=== PATIENT | female | born 1995 | race African-American/Black ===

== ENCOUNTER 2016-12-16 22:12 | Emergency (ER) | payer OTHER ==
[2016-12-16] MEDS ORDERED: Ibuprofen 800 MG TAB ONE (22:35)
[2016-12-16] MEDS ORDERED: predniSONE 20 MG TAB ONE (22:36)
== END 2016-12-16 22:50 | disposition home or self-care (01) ==
LOC: MADERS 22:12
DX: R07.81 Pleurodynia (principal)
CPT/HCPCS: 93005; J7506

== ENCOUNTER 2017-04-05 22:06 | Emergency (ER) | payer OTHER ==
[2017-04-05 22:45] LABS: Bilirubin Negative (Negative); Blood, Urine Negative (Negative); Clarity Cloudy (Clear); Glucose, Urine (Dipstick) Negative (Negative); Leukocyte Moderate (Negative); Nitrite Negative (Negative); Pregnancy Test - Urine (BHCG) NEGATIVE (NEGATIVE); Pregu Control Background? CLEAR/WHITE (CLR/WHITE); Pregu Control Bar Appear? YES (CONTROL BAR); Protein, Urine (Dipstick) Negative (Neg-Trace); Urobilinogen 0.2 mg/dL (0.2-1.0); pH, Urine 7.5 (5.0-9.0)
[2017-04-05 22:51] LABS: RBC/HPF None Seen HPF (0-3); WBC/HPF 21-50 HPF (0-3)
[2017-04-05 22:52] LABS: Bacteria/HPF Rare-Few HPF (None Seen)
[2017-04-05] MEDS ORDERED: Sulfameth/Trimethoprim DS 800-160mg TAB ONE (23:17)
[2017-04-05] MEDS ORDERED: traMADol HCl 50 MG TAB ONE (23:17)
== END 2017-04-05 23:23 | disposition home or self-care (01) ==
LOC: MADERS 22:06
DX: N39.0 Urinary tract infection, site not specified (principal)
CPT/HCPCS: 81001; 81025; 87086; 99284

== ENCOUNTER 2017-05-19 22:38 | Emergency (ER) | payer OTHER ==
[2017-05-19 22:58] LABS: Bilirubin Negative (Negative); Clarity Cloudy (Clear); Glucose, Urine (Dipstick) Negative (Negative); Leukocyte Trace (Negative); Nitrite Negative (Negative); Protein, Urine (Dipstick) 30 mg/dL (Neg-Trace); Specific Gravity, Urine 1.025 (1.005-1.030); Urobilinogen 0.2 mg/dL (0.2-1.0); pH, Urine 6.5 (5.0-9.0)
[2017-05-19 22:59] LABS: Blood, Urine Negative (Negative)
[2017-05-19 23:01] LABS: Pregnancy Test - Urine (BHCG) Negative (Negative); Pregu Control Background? CLEAR/WHITE (CLR/WHITE); Pregu Control Bar Appear? YES (CONTROL BAR); Specific Gravity 1.025 (1.002-1.036)
[2017-05-19 23:06] LABS: Bacteria/HPF Rare-Few HPF (None Seen); RBC/HPF 0-3 HPF (0-3); Squamous Epithelial 21-50 HPF (0-3)
[2017-05-19] MEDS ORDERED: Nitrofurantoin Monohyd/M-Cryst 100 MG CAP ONE (23:23)
[2017-05-19] MEDS ORDERED: Phenazopyridine HCl 97.5 MG TABLET ONE (23:23)
== END 2017-05-19 23:28 | disposition home or self-care (01) ==
LOC: MADERS 22:38
DX: N39.0 Urinary tract infection, site not specified (principal)
CPT/HCPCS: 81001; 81025; 87086; 99283

== ENCOUNTER 2017-05-24 15:25 | Emergency (ER) | payer OTHER | END 2017-05-24 16:30 | disposition home or self-care (01) | LOC: MADERS 15:25 | DX: J02.9 Acute pharyngitis, unspecified (principal); Z79.2 Long term (current) use of antibiotics | CPT/HCPCS: 87081; 87430; 99283 ==

== ENCOUNTER 2017-06-18 12:41 | Emergency (ER) | payer SELFPAY ==
--- NOTE | 2017-06-18 13:57 | RAD ---
RIGHT HAND: Three views obtained. HISTORY: Fall with injury to right hand. FINDINGS: Carpals appear intact. Interosseous cyst seen involving the capitate. Metacarpals and phalanges ap pear intact. IMPRESSION: No evidence of acute fracture. POS: [facility]
== END 2017-06-18 13:42 | disposition home or self-care (01) ==
LOC: MADERS 12:41
DX: S60.221A Contusion of right hand, initial encounter (principal); W19.XXXA Unspecified fall, initial encounter

== ENCOUNTER 2017-09-14 16:42 | Emergency (ER) | payer MEDICAID, OTHER ==
[2017-09-14 17:48] LABS: Bilirubin Negative (Negative); Blood, Urine Trace (Negative); Clarity Cloudy (Clear); Glucose, Urine (Dipstick) Negative (Negative); Leukocyte Small (Negative); Nitrite Negative (Negative); Protein, Urine (Dipstick) 30 mg/dL (Neg-Trace); Specific Gravity, Urine 1.026 (1.002-1.036); Urobilinogen 0.2 mg/dL (0.2-1.0)
[2017-09-14 17:49] LABS: Pregnancy Test - Urine (BHCG) POSITIVE (Negative); Pregu Control Background? CLEAR/WHITE (CLR/WHITE); Pregu Control Bar Appear? YES (CONTROL BAR); Specific Gravity 1.026 (1.002-1.036)
[2017-09-14 17:51] LABS: RBC/HPF 0-3 HPF (0-3)
[2017-09-14 17:52] LABS: Bacteria/HPF 1+ HPF (None Seen); Crystals/HPF 1+ AMORPH URATES HPF (Negative); Squamous Epithelial 21-50 HPF (0-3)
== END 2017-09-14 18:20 | disposition home or self-care (01) ==
LOC: MADERS 16:42
DX: O23.11 Infections of bladder in pregnancy, first trimester (principal)
CPT/HCPCS: 81003; 81015; 81025; 99284

== ENCOUNTER 2017-09-24 10:31 | Emergency (ER) | payer MEDICAID ==
[~2017-09-24 10:31] MED LIST: metroNIDAZOLE 250 MG TAB ONE
[2017-09-24 11:12] LABS: Bilirubin Negative (Negative); Blood, Urine Moderate (Negative); Glucose, Urine (Dipstick) Negative (Negative); Leukocyte Small (Negative); Nitrite Negative (Negative); Protein, Urine (Dipstick) Negative (Neg-Trace); Specific Gravity, Urine 1.025 (1.005-1.030); pH, Urine 6.5 (5.0-9.0)
[2017-09-24 11:13] LABS: Clarity Hazy (Clear)
[2017-09-24 11:14] LABS: Bacteria/HPF 2+ HPF (None Seen); WBC/HPF 21-50 HPF (0-3)
[2017-09-24 11:15] LABS: Pregnancy Test - Urine (BHCG) POSITIVE (Negative); Pregu Control Background? CLEAR/WHITE (CLR/WHITE); Pregu Control Bar Appear? YES (CONTROL BAR); Specific Gravity 1.025 (1.002-1.036)
[2017-09-24 11:35] LABS: Wet Prep Clue Cells Clue Cells Absent (None Seen); Wet Prep Trichomonas Trichomonas PRESENT (None Seen)
[2017-09-24 11:36] LABS: Wet Prep Pathologist Review Spermatozoa Absent (None Seen); Wet Prep Spermatozoa 2nd Revie Agree with result (None Seen)
[2017-09-24 11:40] LABS: #Eosinphils 0.1 thou/uL (0.0-0.7); #Lymphocytes 1.6 thou/uL (1.20-3.40); #Monocytes 0.4 thou/uL (0.11-0.59); #Neutrophils 4.9 thou/uL (1.40-6.50); %Basophils 0.7 % (0.0-1.0); %Eosinophils 1.9 % (0.0-10.0); %Lymphocytes 22.7 % (21.0-51.0); %Monocytes 6.1 % (0.0-10.0); %Neutrophils 68.6 % (42.0-75.0); Hemoglobin 11.9 g/dL (12.0-16.0); Mean Corpuscular HGB CONC 35.1 g/dL (32.0-36.0); Mean Corpuscular Hemoglobin 30.9 pg (27.0-31.0); Mean Corpuscular Volume 88.1 fl (81.0-99.0); Platelet Count 249 thou/uL (130-400); RBC Distribution Width 11.7 % (11.5-14.5); Red Blood Cell (RBC) Count 3.86 mill/uL (4.20-5.40); White Blood Cell (WBC) Count 7.2 thou/uL (4.8-10.8)
[2017-09-24] MEDS ORDERED: metroNIDAZOLE 250 MG TAB ONE (12:57)
[2017-10-01 10:01] LABS: Chlamydia by PCR Not Detected (NotDetected); GC by PCR Not Detected (NotDetected)
== END 2017-09-24 13:14 | disposition short-term general hospital (02) ==
LOC: MADERS 10:31
DX: O20.9 Hemorrhage in early pregnancy, unspecified (principal); Z3A.01 Less than 8 weeks gestation of pregnancy
CPT/HCPCS: 36415; 81003; 81015; 81025; 84702; 85025; 87086; 87210; 87491; 87591; 99284

== ENCOUNTER 2017-10-21 10:19 | Emergency (ER) | payer MEDICAID, OTHER ==
[2017-10-21 11:16] LABS: Bilirubin Negative (Negative); Blood, Urine Negative (Negative); Clarity Slightly Cloudy (Clear); Glucose, Urine (Dipstick) Negative (Negative); Leukocyte Moderate (Negative); Nitrite Negative (Negative); Pregnancy Test - Urine (BHCG) POSITIVE (Negative); Protein, Urine (Dipstick) 30 mg/dL (Neg-Trace); pH, Urine 6.5 (5.0-9.0)
[2017-10-21 11:17] LABS: Pregu Control Background? CLEAR/WHITE (CLR/WHITE); Pregu Control Bar Appear? YES (CONTROL BAR)
[2017-10-21 11:21] LABS: Bacteria/HPF 3+ HPF (None Seen); WBC/HPF 21-50 HPF (0-3)
== END 2017-10-21 11:46 | disposition home or self-care (01) ==
LOC: MADERS 10:19
DX: O99.89 Other specified diseases and conditions complicating pregnancy, childbirth and the puerperium (principal); R82.71 Bacteriuria; R10.31 Right lower quadrant pain; Z3A.10 10 weeks gestation of pregnancy
CPT/HCPCS: 81003; 81015; 81025; 87077; 87086; 99284

== ENCOUNTER 2018-03-05 19:25 | Emergency (ER) | payer OTHER ==
[~2018-03-05 19:25] MED LIST changes: +Sodium Chloride 0.9% 1,000 ML BAG ONE; -metroNIDAZOLE 250 MG TAB ONE
[2018-03-05 19:59] LABS: Bilirubin Negative (Negative); Blood, Urine Negative (Negative); Clarity Cloudy (Clear); Glucose, Urine (Dipstick) Negative (Negative); Leukocyte Trace (Negative); Nitrite Negative (Negative); Protein, Urine (Dipstick) 30 mg/dL (Neg-Trace); Specific Gravity, Urine 1.015 (1.005-1.030); Urobilinogen 0.2 mg/dL (0.2-1.0)
[2018-03-05] MEDS ORDERED: cefTRIAXone\\ROCEPHIN 1 GM VIAL ONE (20:08)
[2018-03-05] MEDS ORDERED: Ondansetron ODT 4 MG TAB ONE (20:08)
[2018-03-05 20:16] LABS: Bacteria/HPF 2+ HPF (None Seen); RBC/HPF None Seen HPF (0-3); WBC/HPF 0-3 HPF (0-3)
[2018-03-05 20:20] LABS: #Basophils 0.1 thou/uL (0.0-0.2); #Eosinphils 0.2 thou/uL (0.0-0.7); #Lymphocytes 1.8 thou/uL (1.20-3.40); #Monocytes 0.6 thou/uL (0.11-0.59); #Neutrophils 8.5 thou/uL (1.40-6.50); %Basophils 0.6 % (0.0-1.0); %Eosinophils 1.4 % (0.0-10.0); %Lymphocytes 16.2 % (21.0-51.0); %Monocytes 5.6 % (0.0-10.0); %Neutrophils 76.2 % (42.0-75.0); Hemoglobin 10.5 g/dL (12.0-16.0); Mean Corpuscular HGB CONC 34.1 g/dL (32.0-36.0); Mean Corpuscular Hemoglobin 29.8 pg (27.0-31.0); Mean Corpuscular Volume 87.2 fl (81.0-99.0); Mean Platelet Volume 6.8 fL (7.4-10.4); Platelet Count 212 thou/uL (130-400); RBC Distribution Width 11.1 % (11.5-14.5); Red Blood Cell (RBC) Count 3.53 mill/uL (4.20-5.40); White Blood Cell (WBC) Count 11.2 thou/uL (4.8-10.8)
[2018-03-05 20:44] LABS: ALT (SGPT) Less than 7 U/L (8-55); AST (SGOT) 10 U/L (5-34); Albumin 3.4 g/dL (3.5-5.0); Alkaline Phosphatase 70 U/L (40-150); Anion Gap 14 mmol/L (10-20); BUN (Urea Nitrogen) 4 mg/dL (7.0-18.7); Bilirubin, Total 0.7 mg/dL (0.2-1.2); Calc. Creatinine Clearance 0 mL/min (70-130); Calcium 8.9 mg/dL (7.8-10.44); Carbon Dioxide 21 mmol/L (22-29); Chloride 104 mmol/L (98-107); Estimated GFR-MDRD Greater than 90; Globulin 3.3 g/dL (2.4-3.5); Glucose 80 mg/dL (70-105); Potassium 3.6 mmol/L (3.5-5.1); Protein, Total 6.7 g/dL (6.0-8.3); Sodium 135 mmol/L (136-145)
== END 2018-03-05 21:05 | disposition home or self-care (01) ==
LOC: MADERS 19:25
DX: O23.43 Unspecified infection of urinary tract in pregnancy, third trimester (principal); O21.2 Late vomiting of pregnancy; O99.343 Other mental disorders complicating pregnancy, third trimester; F32.9 Major depressive disorder, single episode, unspecified; O99.283 Endocrine, nutritional and metabolic diseases complicating pregnancy, third trimester; E86.0 Dehydration; Z79.899 Other long term (current) drug therapy; Z3A.29 29 weeks gestation of pregnancy
CPT/HCPCS: 80053; 81003; 81015; 85025; 87086; 96361; 96374; J0696; J7050; Q0162

== ENCOUNTER 2018-04-26 12:44 | Emergency (ER) | payer OTHER ==
[2018-04-26] MEDS ORDERED: Ondansetron ODT 4 MG TAB ONE (13:45)
== END 2018-04-26 15:02 | disposition short-term general hospital (02) ==
LOC: MADERS 12:44
DX: O99.89 Other specified diseases and conditions complicating pregnancy, childbirth and the puerperium (principal); R10.9 Unspecified abdominal pain; O99.343 Other mental disorders complicating pregnancy, third trimester; F31.9 Bipolar disorder, unspecified; Z3A.37 37 weeks gestation of pregnancy
CPT/HCPCS: 99284; Q0162

== ENCOUNTER 2018-05-01 23:22 | Emergency (ER) | payer OTHER | END 2018-05-02 02:55 | disposition left against medical advice (07) | LOC: MADERS 23:22 | DX: O80 Encounter for full-term uncomplicated delivery (principal); Z3A.38 38 weeks gestation of pregnancy | CPT/HCPCS: 99283 ==

== ENCOUNTER 2018-08-04 19:22 | Emergency (ER) | payer OTHER | END 2018-08-04 19:44 | disposition home or self-care (01) | LOC: MADERS 19:22 | DX: R05 Cough (principal); F31.9 Bipolar disorder, unspecified | CPT/HCPCS: 99281 ==

== ENCOUNTER 2018-11-07 19:42 | Emergency (ER) | payer OTHER ==
[2018-11-07] MEDS ORDERED: Ondansetron ODT 4 MG TAB ONE (19:58)
== END 2018-11-07 20:05 | disposition home or self-care (01) ==
LOC: MADERS 19:42
DX: K52.9 Noninfective gastroenteritis and colitis, unspecified (principal); F31.9 Bipolar disorder, unspecified
CPT/HCPCS: 99283; Q0162

== ENCOUNTER 2018-12-04 14:44 | Emergency (ER) | payer SELFPAY | END 2018-12-04 15:28 | disposition home or self-care (01) | LOC: MADERS 14:44 | DX: B34.9 Viral infection, unspecified (principal); F31.9 Bipolar disorder, unspecified | CPT/HCPCS: 99283 ==

== ENCOUNTER 2019-01-05 19:43 | Emergency (ER) | payer SELFPAY, OTHER ==
[2019-01-05] MEDS ORDERED: Ibuprofen 800 MG TAB ONE (20:23)
== END 2019-01-05 21:10 | disposition home or self-care (01) ==
LOC: MADERS 19:43
DX: J02.9 Acute pharyngitis, unspecified (principal); F31.9 Bipolar disorder, unspecified
CPT/HCPCS: 87081; 87430; 87804; 99283

== ENCOUNTER 2019-04-24 12:56 | Emergency (ER) | payer SELFPAY | END 2019-04-24 13:20 | disposition home or self-care (01) | LOC: MADERS 12:56 | DX: K14.6 Glossodynia (principal); F31.9 Bipolar disorder, unspecified | CPT/HCPCS: 99283 ==

== ENCOUNTER 2020-05-27 13:24 | Emergency (ER) | payer MEDICAID, OTHER, SELFPAY ==
[2020-05-27] MEDS ORDERED: Oxymetazoline HCl 0.05% (30 ML BOT) ONE (13:55)
== END 2020-05-27 14:01 | disposition home or self-care (01) ==
LOC: MADERS 13:24
DX: H92.01 Otalgia, right ear (principal); F31.9 Bipolar disorder, unspecified
CPT/HCPCS: 99282

== ENCOUNTER 2020-07-06 10:59 | Emergency (ER) | payer OTHER ==
[~2020-07-06 10:59] MED LIST changes: +Iopamidol 370 76% 100 ML VIAL ONE; +Ketorolac Tromethamine 30 MG/ML VIAL ONE; -Sodium Chloride 0.9% 1,000 ML BAG ONE
[2020-07-06 11:42] LABS: #Eosinphils 0.3 thou/uL (0.0-0.7); #Lymphocytes 1.8 thou/uL (1.20-3.40); #Monocytes 0.4 thou/uL (0.11-0.59); #Neutrophils 4.9 thou/uL (1.40-6.50); %Basophils 0.7 % (0.0-1.0); %Monocytes 4.8 % (0.0-10.0); %Neutrophils 66.5 % (42.0-75.0); Hemoglobin 11.8 g/dL (12.0-16.0); Mean Corpuscular HGB CONC 32.9 g/dL (32.0-36.0); Mean Corpuscular Hemoglobin 26.8 pg (27.0-31.0); Mean Corpuscular Volume 81.5 fL (78.0-98.0); Platelet Count 280 thou/uL (130-400); RBC Distribution Width 14.8 % (11.5-14.5); White Blood Cell (WBC) Count 7.4 thou/uL (4.8-10.8)
[2020-07-06 11:44] LABS: PTT 34.8 sec (22.9-36.1); Prothrombin Time 13.2 sec (12.0-14.7)
[2020-07-06 11:49] LABS: BHCG - Serum Negative (NEGATIVE); Pregs Control Background? CLEAR/WHITE (CLR/WHITE); Pregs Control Bar Appear? YES (CONTROL BAR)
[2020-07-06 11:53] LABS: Anion Gap 15 mmol/L (10-20); BUN (Urea Nitrogen) 7 mg/dL (7.0-18.7); Calc. Creatinine Clearance 0 mL/min (70-130); Calcium 8.6 mg/dL (7.8-10.44); Carbon Dioxide 22 mmol/L (22-29); Chloride 107 mmol/L (98-107); Estimated GFR-MDRD Greater than 90; Glucose 113 mg/dL (70-105); Potassium 3.5 mmol/L (3.5-5.1); Sodium 140 mmol/L (136-145)
[2020-07-06 12:01] LABS: Bilirubin Negative (Negative); Blood, Urine Small (Negative); Clarity Clear (Clear); Glucose, Urine (Dipstick) Negative (Negative); Ketone, Urine Negative (Negative); Leukocyte Negative (Negative); Nitrite Negative (Negative); Protein, Urine (Dipstick) Negative (Neg-Trace); Specific Gravity, Urine 1.025 (1.005-1.030); Urobilinogen 0.2 mg/dL (Less than 2); pH, Urine 6.5 (5.0-9.0)
[2020-07-06 12:06] LABS: Bacteria/HPF Rare-Few HPF (None Seen); Mucous/LPF 2+ LPF (<2+); Squamous Epithelial 0-3 HPF (0-3); WBC/HPF 0-3 HPF (0-3)
--- NOTE | 2020-07-06 12:31 | CT ---
EXAM: CT ABDOMEN AND PELVIS HISTORY: Right lower quadrant pain COMPARISON: None. Procedure: Multiple contiguous axial images were obtained and a CT of the abdomen and pelvis with IV contrast. C oronal reformats were performed. FINDINGS: Lower Chest: No masses or consolidation Vessels: Normal caliber aorta. Heart: Limited evaluation Abdomen: Portal vein:Patent Gallbladder: No calcified gallstones. Normal caliber wall. Liver: within normal limits. Pancreas: within normal limits. Spleen: within normal limits. Adrenals: within normal limits. Kidneys: Symmetric enhancement. No obstructive uropathy. Peritoneum: No ascites or free air, no fluid collection. Bowel: Limited evaluation due to the lack of oral contrast administration. No evidence of bowel obstr uction. Ileocecal junction is unremarkable. Normal caliber appendix. Scattered fecal material in a nondistended, nondilated colon. Mesentery and Retroperitoneum: No enlarged mesenteric or retroperitoneal lymph nodes. Abdominal Wall: Small umbilical hernia containing mesenteric fat. Pelvis: Reproductive Organs: Uterus and left adnexa a normal appearance. Slightly heterogeneous attenuation o f the right ovary, likely due to a 1.2 cm dominant follicle. Pelvis: No mass, lymphadenopathy or free air. Trace amount of free fluid in the pelvis Bladder: within normal limits. Bones: within normal limits. IMPRESSION: 1. Dominant follicle in the right ovary. 2. No evidence of obstructive uropathy. 3. Normal caliber appendix.
[2020-07-06 12:52] LABS: Wet Prep Trichomonas Trichomonas Absent (None Seen)
[2020-07-06 12:53] LABS: Wet Prep Clue Cells Clue Cells PRESENT (None Seen)
[2020-07-08 17:54] LABS: Chlamydia by PCR DETECTED (NotDetected); GC by PCR Not Detected (NotDetected)
== END 2020-07-06 12:50 | disposition home or self-care (01) ==
LOC: MADERS 10:59
DX: N92.0 Excessive and frequent menstruation with regular cycle (principal); R10.2 Pelvic and perineal pain; F31.9 Bipolar disorder, unspecified
CPT/HCPCS: 74177; 80048; 81003; 81015; 84703; 85025; 85610; 85730; 87210; 87480; 87491; 87510; 87591; 87660; 96374; J1885; Q9967

== ENCOUNTER 2020-08-09 21:07 | Emergency (ER) | payer OTHER ==
[~2020-08-09 21:07] MED LIST changes: -Ketorolac Tromethamine 30 MG/ML VIAL ONE
[2020-08-09] MEDS ORDERED: Ibuprofen 600 MG TAB ONE (21:29)
[2020-08-09 21:46] LABS: Bilirubin Negative (Negative); Blood, Urine Large (Negative); Clarity Slightly Cloudy (Clear); Glucose, Urine (Dipstick) Negative (Negative); Ketone, Urine Negative (Negative); Leukocyte Moderate (Negative); Nitrite Positive (Negative); Protein, Urine (Dipstick) 100 mg/dL (Neg-Trace); Specific Gravity, Urine 1.015 (1.005-1.030)
[2020-08-09 21:53] LABS: WBC/HPF 21-50 HPF (0-3)
[2020-08-09 21:54] LABS: Bacteria/HPF 3+ HPF (None Seen); Mucous/LPF None Seen LPF (<2+)
[2020-08-09 22:24] LABS: Pregnancy Test - Urine (BHCG) Negative (Negative); Pregu Control Background? CLEAR/WHITE (CLR/WHITE); Pregu Control Bar Appear? YES (CONTROL BAR); Specific Gravity 1.015 (1.002-1.036)
[2020-08-09] MEDS ORDERED: CEFAZOLIN 1 GM VIAL ONE (22:50)
[2020-08-09] MEDS ORDERED: Doxycycline 100 MG CAP ONE (22:51)
[2020-08-09] MEDS ORDERED: Sodium Chloride 0.9% 200 ML ONE (22:52)
[2020-08-09] MEDS ORDERED: ceFOXitin 1 GM VIAL ONE (23:05)
[2020-08-09 23:14] LABS: #Basophils 0.1 thou/uL (0.0-0.2); #Lymphocytes 1.4 thou/uL (1.20-3.40); #Monocytes 0.8 thou/uL (0.11-0.59); #Neutrophils 6.5 thou/uL (1.40-6.50); %Basophils 0.6 % (0.0-1.0); %Eosinophils 0.1 % (0.0-10.0); %Lymphocytes 15.6 % (21.0-51.0); %Monocytes 9.5 % (0.0-10.0); %Neutrophils 74.2 % (42.0-75.0); ALT (SGPT) 51 U/L (8-55); AST (SGOT) 31 U/L (5-34); Albumin 4.1 g/dL (3.5-5.0); Alkaline Phosphatase 74 U/L (40-110); Anion Gap 19 mmol/L (10-20); BUN (Urea Nitrogen) 6 mg/dL (7.0-18.7); Calc. Creatinine Clearance 0 mL/min (70-130); Calcium 8.7 mg/dL (7.8-10.44); Carbon Dioxide 22 mmol/L (22-29); Chloride 100 mmol/L (98-107); Estimated GFR-MDRD Greater than 90; Globulin 3.7 g/dL (2.4-3.5); Glucose 105 mg/dL (70-105); Hemoglobin 10.3 g/dL (12.0-16.0); Mean Corpuscular HGB CONC 32.7 g/dL (32.0-36.0); Mean Corpuscular Hemoglobin 27.5 pg (27.0-31.0); Mean Corpuscular Volume 84.2 fL (78.0-98.0); Mean Platelet Volume 6.3 fL (7.4-10.4); Platelet Count 258 thou/uL (130-400); Protein, Total 7.8 g/dL (6.0-8.3); RBC Distribution Width 12.7 % (11.5-14.5); Red Blood Cell (RBC) Count 3.75 mill/uL (4.20-5.40); Sodium 138 mmol/L (136-145); White Blood Cell (WBC) Count 8.8 thou/uL (4.8-10.8)
[2020-08-09 23:57] LABS: Critical Call Chemistry EMS.CLJ; Potassium 2.7 mmol/L (3.5-5.1)
[2020-08-10] MEDS ORDERED: cefTRIAXone\\ROCEPHIN 500 MG VIAL ONE (00:18)
[2020-08-10] MEDS ORDERED: Nitrofurantoin Monohyd/M-Cryst 100 MG CAP ONE (00:18)
[2020-08-10] MEDS ORDERED: Sterile Water 10 ML ONE (00:18)
[2020-08-10] MEDS ORDERED: Potassium Chloride 20 MEQ TAB ONE (00:18)
--- NOTE | 2020-08-10 08:05 | CT ---
CT ABDOMEN AND PELVIS WITH IV CONTRAST: INDICATION: Fever and lower abdominal pain. COMPARISON: Comparison is made to recent CT abdomen and pelvis 07/06/2020. FINDINGS: Lung bases clear. Liver, spleen, and pancreas unremarkable. Stomach and duodenum unremarkable. Adrenal glands and kidneys unremarkable. Small bowel loops normal caliber. The appendix appears normal. Colon unremarkable. Images through the pelvis again show prominent uterus. There are follicular cysts in both ovaries si milar to the prior exam. The largest cyst in the right ovary measures approximately 1.5 cm. A tiny amount of free fluid in the cul-de-sac. IMPRESSION: 1. Follicular cyst in both ovaries. A tiny amount of free fluid in the cul-d-sac. 2. No acute process. POS: [facility]
[2020-08-12 21:54] LABS: Chlamydia by PCR DETECTED (NotDetected); GC by PCR Not Detected (NotDetected)
== END 2020-08-10 00:51 | disposition home or self-care (01) ==
LOC: MADERS 21:07
DX: N70.93 Salpingitis and oophoritis, unspecified (principal); N73.9 Female pelvic inflammatory disease, unspecified; E87.6 Hypokalemia; F31.9 Bipolar disorder, unspecified
CPT/HCPCS: 74177; 80053; 81003; 81015; 81025; 83605; 85025; 87040; 87077; 87086; 87186; 87480; 87491; 87510; 87591; 87660; 94760; 96365; 96372; J0690; J0694; J0696; J3490; Q9967

== ENCOUNTER 2021-03-09 20:32 | Emergency (ER) | payer MEDICARE, MEDICAID ==
[2021-03-09] MEDS ORDERED: predniSONE 20 MG TAB ONE (21:03)
== END 2021-03-09 21:13 | disposition home or self-care (01) ==
LOC: MADERS 20:32
DX: J06.9 Acute upper respiratory infection, unspecified (principal)
CPT/HCPCS: 99283; J7512

== ENCOUNTER 2021-08-17 17:47 | Emergency (ER) | payer MEDICARE, MEDICAID ==
[2021-08-17] MEDS ORDERED: Sodium Chloride 0.9% 1,000 ML ONE (19:54)
[2021-08-17] MEDS ORDERED: Ondansetron PF 4 MG/2 ML Vial ONE (19:54)
[2021-08-17 20:01] LABS: #Basophils 0.1 thou/uL (0.0-0.2); #Eosinphils 0.5 thou/uL (0.0-0.7); #Lymphocytes 2.5 thou/uL (1.20-3.40); #Monocytes 0.4 thou/uL (0.11-0.59); #Neutrophils 3.4 thou/uL (1.40-6.50); %Basophils 1.2 % (0.0-1.0); %Eosinophils 6.8 % (0.0-10.0); %Lymphocytes 36.6 % (21.0-51.0); %Monocytes 5.7 % (0.0-10.0); %Neutrophils 49.6 % (42.0-75.0); Hemoglobin 11.1 g/dL (12.0-16.0); Mean Corpuscular HGB CONC 31.7 g/dL (32.0-36.0); Mean Corpuscular Hemoglobin 27.5 pg (27.0-31.0); Mean Corpuscular Volume 86.9 fL (78.0-98.0); Mean Platelet Volume 6.4 fL (7.4-10.4); Platelet Count 302 thou/uL (130-400); RBC Distribution Width 12.8 % (11.5-14.5); Red Blood Cell (RBC) Count 4.02 mill/uL (4.20-5.40); White Blood Cell (WBC) Count 6.8 thou/uL (4.8-10.8)
[2021-08-17 20:16] LABS: ALT (SGPT) 8 U/L (8-55); AST (SGOT) 10 U/L (5-34); Alkaline Phosphatase 56 U/L (40-110); Anion Gap 12 mmol/L (10-20); BUN (Urea Nitrogen) 7 mg/dL (7.0-18.7); Bilirubin, Total 0.7 mg/dL (0.2-1.2); CK (CPK) 84 U/L (29-168); CRP (Inflammatory) Less than 0.50 mg/dL (= or < 0.5); Calc. Creatinine Clearance 0 mL/min (70-130); Calcium 9.1 mg/dL (7.8-10.44); Carbon Dioxide 23 mmol/L (22-29); Chloride 109 mmol/L (98-107); Globulin 2.2 g/dL (2.4-3.5); Glucose 96 mg/dL (70-105); Lipase 19 U/L (8-78); Potassium 3.7 mmol/L (3.5-5.1); Protein, Total 6.2 g/dL (6.0-8.3); Sodium 140 mmol/L (136-145)
[2021-08-17 20:23] LABS: Bilirubin Negative (Negative); Blood, Urine Negative (Negative); Glucose, Urine (Dipstick) Negative (Negative); Ketone, Urine Negative (Negative); Leukocyte Trace (Negative); Nitrite Negative (Negative); Pregnancy Test - Urine (BHCG) Negative (Negative); Pregu Control Background? CLEAR/WHITE (CLR/WHITE); Pregu Control Bar Appear? YES (CONTROL BAR); Protein, Urine (Dipstick) Trace mg/dL (Neg-Trace); pH, Urine 8.5 (5.0-9.0)
[2021-08-17 20:24] LABS: Bacteria/HPF Rare-Few HPF (None Seen); Clarity Cloudy (Clear); Mucous/LPF 1+ LPF (<2+); RBC/HPF None Seen HPF (0-3)
[2021-08-17] MEDS ORDERED: Cephalexin 500 MG CAP ONE (21:27)
[2021-08-17] MEDS ORDERED: Magnesium Citrate 300 ML BOT ONE (21:27)
== END 2021-08-17 21:51 | disposition home or self-care (01) ==
LOC: MADERS 17:47
DX: K59.00 Constipation, unspecified (principal); N39.0 Urinary tract infection, site not specified
CPT/HCPCS: 74022; 80053; 81003; 81015; 81025; 82150; 82550; 83690; 85025; 86140; 96374; J2405; J7050

== ENCOUNTER 2022-04-06 10:56 | Emergency (ER) | payer MEDICARE, OTHER ==
[2022-04-06 11:35] LABS: Bilirubin Negative (Negative); Blood, Urine Negative (Negative); Clarity Clear (Clear); Glucose, Urine (Dipstick) Negative (Negative); Ketone, Urine Negative (Negative); Leukocyte Moderate (Negative); Nitrite Negative (Negative); Protein, Urine (Dipstick) Negative (Neg-Trace); Urobilinogen 0.2 mg/dL (Less than 2); pH, Urine 8.5 (5.0-9.0)
[2022-04-06 11:40] LABS: Pregnancy Test - Urine (BHCG) Negative (Negative); Pregu Control Background? CLEAR/WHITE (CLR/WHITE); Pregu Control Bar Appear? YES (CONTROL BAR)
[2022-04-06 11:46] LABS: Bacteria/HPF 1+ HPF (None Seen); RBC/HPF 0-3 HPF (0-3); WBC/HPF 21-50 HPF (0-3)
== END 2022-04-06 11:55 | disposition home or self-care (01) ==
LOC: MADERS 10:56
DX: N39.0 Urinary tract infection, site not specified (principal); I49.8 Other specified cardiac arrhythmias
CPT/HCPCS: 36416; 81003; 81015; 81025; 93005

== ENCOUNTER 2022-07-26 07:39 | Emergency (ER) | payer OTHER | END 2022-07-26 08:24 | disposition home or self-care (01) | LOC: MADERS 07:39 | DX: J06.9 Acute upper respiratory infection, unspecified (principal) | CPT/HCPCS: 99283 ==

== ENCOUNTER 2022-08-31 14:15 | Emergency (ER) | payer OTHER ==
[2022-08-31 14:46] LABS: Bilirubin Small (Negative); Blood, Urine Negative (Negative); Glucose, Urine (Dipstick) Negative (Negative); Ketone, Urine Trace mg/dL (Negative); Leukocyte Trace (Negative); Nitrite Negative (Negative); Protein, Urine (Dipstick) 30 mg/dL (Neg-Trace); pH, Urine 8.5 (5.0-9.0)
[2022-08-31 14:48] LABS: Clarity Hazy (Clear); RBC/HPF 0-3 HPF (0-3); WBC/HPF 0-3 HPF (0-3)
[2022-08-31 14:49] LABS: Bacteria/HPF Rare-Few HPF (None Seen); Pregu Control Background? CLEAR/WHITE (CLR/WHITE); Pregu Control Bar Appear? YES (CONTROL BAR)
[2022-08-31] MEDS ORDERED: Ketorolac Tromethamine 30 MG/ML VIAL ONE (14:59)
[2022-08-31 15:04] LABS: Pregnancy Test - Urine (BHCG) POSITIVE (Negative)
[2022-08-31 15:24] LABS: #Eosinphils 0.1 thou/uL (0.0-0.7); #Lymphocytes 1.3 thou/uL (1.20-3.40); #Monocytes 0.3 thou/uL (0.11-0.59); #Neutrophils 3.7 thou/uL (1.40-6.50); %Basophils 0.7 % (0.0-1.0); %Eosinophils 2.3 % (0.0-10.0); %Lymphocytes 24.1 % (21.0-51.0); Hemoglobin 11.5 g/dL (12.0-16.0); Mean Corpuscular HGB CONC 33.4 g/dL (32.0-36.0); Mean Corpuscular Hemoglobin 30.6 pg (27.0-31.0); Mean Corpuscular Volume 91.6 fl (78.0-98.0); Mean Platelet Volume 6.9 fL (7.4-10.4); Platelet Count 245 thou/uL (130-400); RBC Distribution Width 10.7 % (11.5-14.5); Red Blood Cell (RBC) Count 3.77 mill/uL (4.20-5.40); White Blood Cell (WBC) Count 5.4 thou/uL (4.8-10.8)
[2022-08-31 15:40] LABS: ALT (SGPT) 11 U/L (8-55); AST (SGOT) 12 U/L (5-34); Albumin 3.9 g/dL (3.5-5.0); Alkaline Phosphatase 43 U/L (40-110); Anion Gap 10 mmol/L (10-20); BUN (Urea Nitrogen) 7 mg/dL (7.0-18.7); CRP (Inflammatory) Less than 0.50 mg/dL (= or < 0.5); Calc. Creatinine Clearance 0 mL/min (70-130); Calcium 8.9 mg/dL (7.8-10.44); Carbon Dioxide 26 mmol/L (22-29); Chloride 109 mmol/L (98-107); Estimated GFR 122; Globulin 3.1 g/dL (2.4-3.5); Glucose 92 mg/dL (70-105); Potassium 3.5 mmol/L (3.5-5.1); Sodium 141 mmol/L (136-145)
[2022-08-31 15:40] LABS: BHCG - Serum POSITIVE (NEGATIVE); Pregs Control Background? CLEAR/WHITE (CLR/WHITE); Pregs Control Bar Appear? YES (CONTROL BAR)
== END 2022-08-31 17:01 | disposition short-term general hospital (02) ==
LOC: MADERS 14:15
DX: O99.891 Other specified diseases and conditions complicating pregnancy (principal); R10.31 Right lower quadrant pain; Z3A.01 Less than 8 weeks gestation of pregnancy
CPT/HCPCS: 36415; 80053; 81001; 81025; 84703; 85025; 86140; 99284; J1885

== ENCOUNTER 2022-10-08 07:39 | Emergency (ER) | payer OTHER ==
[2022-10-08 08:16] LABS: Bilirubin Negative (Negative); Blood, Urine Negative (Negative); Clarity Slightly Cloudy (Clear); Glucose, Urine (Dipstick) Negative (Negative); Ketone, Urine Negative (Negative); Leukocyte Trace (Negative); Nitrite Negative (Negative); Protein, Urine (Dipstick) Trace mg/dL (Neg-Trace); pH, Urine 8.5 (5.0-9.0)
[2022-10-08 08:24] LABS: Bacteria/HPF 2+ HPF (None Seen); RBC/HPF 0-3 HPF (0-3); Squamous Epithelial 0-3 HPF (0-3)
[2022-10-08] MEDS ORDERED: Sodium Chloride 0.9% 100 ML ONE (08:49)
[2022-10-08] MEDS ORDERED: cefTRIAXone\\ROCEPHIN 2 GM VIAL ONE (08:49)
[2022-10-08] MEDS ORDERED: Ondansetron PF 4 MG/2 ML Vial ONE (08:49)
[2022-10-08] MEDS ORDERED: Lactated Ringer's 1,000 ML ONE ×2 (08:49→09:44)
[2022-10-08] MEDS ORDERED: Acetaminophen 500 MG TAB ONE ×2 (08:49→08:58)
[2022-10-08 08:58] LABS: #Eosinphils 0.1 thou/uL (0.0-0.7); #Lymphocytes 1.3 thou/uL (1.20-3.40); #Monocytes 0.3 thou/uL (0.11-0.59); #Neutrophils 3.3 thou/uL (1.40-6.50); %Basophils 0.9 % (0.0-1.0); %Eosinophils 2.1 % (0.0-10.0); %Lymphocytes 25.8 % (21.0-51.0); %Monocytes 5.4 % (0.0-10.0); %Neutrophils 65.8 % (42.0-75.0); Hemoglobin 11.2 g/dL (12.0-16.0); Mean Corpuscular HGB CONC 34.9 g/dL (32.0-36.0); Mean Corpuscular Hemoglobin 31.1 pg (27.0-31.0); Mean Platelet Volume 7.2 fL (7.4-10.4); Platelet Count 206 10x3/uL (130-400); RBC Distribution Width 10.4 % (11.5-14.5)
[2022-10-08 09:12] LABS: ALT (SGPT) 10 U/L (8-55); AST (SGOT) 11 U/L (5-34); Albumin 3.9 g/dL (3.5-5.0); Alkaline Phosphatase 50 U/L (40-110); Anion Gap 12 mmol/L (10-20); BUN (Urea Nitrogen) 7 mg/dL (7.0-18.7); Calc. Creatinine Clearance 0 mL/min (70-130); Calcium 9.1 mg/dL (7.8-10.44); Carbon Dioxide 22 mmol/L (22-29); Chloride 107 mmol/L (98-107); Estimated GFR 127; Globulin 3.2 g/dL (2.4-3.5); Glucose 89 mg/dL (70-105); Magnesium 1.7 mg/dL (1.6-2.6); Potassium 3.7 mmol/L (3.5-5.1); Protein, Total 7.1 g/dL (6.0-8.3); Sodium 137 mmol/L (136-145)
== END 2022-10-08 11:47 | disposition home or self-care (01) ==
LOC: MADERS 07:39
DX: O23.41 Unspecified infection of urinary tract in pregnancy, first trimester (principal); B96.89 Other specified bacterial agents as the cause of diseases classified elsewhere; O99.891 Other specified diseases and conditions complicating pregnancy; R42 Dizziness and giddiness; Z3A.10 10 weeks gestation of pregnancy
CPT/HCPCS: 80053; 81003; 81015; 83605; 83735; 85025; 87040; 87086; 93005; 94760; 96361; 96374; 96375; J0696; J2405; J3490; J7120

== ENCOUNTER 2022-10-11 08:28 | Emergency (ER) | payer OTHER ==
[2022-10-11] MEDS ORDERED: Lactated Ringer's 1,000 ML ONE ×3 (09:07→13:47)
[2022-10-11] MEDS ORDERED: diphenhydrAMINE 50 MG/ML VIAL ONE (09:07)
[2022-10-11] MEDS ORDERED: Metoclopramide HCl 10 MG/2 ML VIAL ONE (09:07)
[2022-10-11 09:24] LABS: #Lymphocytes 0.2 thou/uL (1.20-3.40); #Monocytes 0.2 thou/uL (0.11-0.59); #Neutrophils 3.4 thou/uL (1.40-6.50); %Basophils 0.9 % (0.0-1.0); %Eosinophils 0.1 % (0.0-10.0); %Lymphocytes 6.2 % (21.0-51.0); %Monocytes 5.7 % (0.0-10.0); %Neutrophils 87.1 % (42.0-75.0); Hemoglobin 10.5 g/dL (12.0-16.0); Mean Corpuscular HGB CONC 34.9 g/dL (32.0-36.0); Mean Corpuscular Hemoglobin 30.8 pg (27.0-31.0); Mean Corpuscular Volume 88.3 fl (78.0-98.0); Mean Platelet Volume 6.6 fL (7.4-10.4); Platelet Count 167 10x3/uL (130-400); RBC Distribution Width 10.2 % (11.5-14.5); Red Blood Cell (RBC) Count 3.39 mill/uL (4.20-5.40); White Blood Cell (WBC) Count 3.9 10x3/uL (4.8-10.8)
[2022-10-11 09:44] LABS: ALT (SGPT) 56 U/L (8-55); AST (SGOT) 53 U/L (5-34); Alkaline Phosphatase 49 U/L (40-110); Anion Gap 11 mmol/L (10-20); BUN (Urea Nitrogen) 5 mg/dL (7.0-18.7); Bilirubin, Total 0.8 mg/dL (0.2-1.2); CK (CPK) 49 U/L (29-168); Calc. Creatinine Clearance 0 mL/min (70-130); Carbon Dioxide 21 mmol/L (22-29); Chloride 103 mmol/L (98-107); Estimated GFR 125; Glucose 102 mg/dL (70-105); Lipase 7 U/L (8-78); Magnesium 1.4 mg/dL (1.6-2.6); Potassium 3.1 mmol/L (3.5-5.1); Sodium 132 mmol/L (136-145)
[2022-10-11] MEDS ORDERED: Acetaminophen 500 MG TAB ONE ×2 (09:44→17:35)
[2022-10-11] MEDS ORDERED: Magnesium 2 GM/50 ML BAG (IN WATER) ONE (10:17)
[2022-10-11] MEDS ORDERED: Potassium Chloride 20 MEQ TAB ONE ×2 (10:17→20:55)
[2022-10-11] MEDS ORDERED: Oseltamivir 75 MG CAP ONE ×2 (11:48→20:29)
[2022-10-11 12:13] LABS: Bilirubin Negative (Negative); Blood, Urine Negative (Negative); Clarity Clear (Clear); Glucose, Urine (Dipstick) Negative (Negative); Ketone, Urine 15 mg/dL (Negative); Leukocyte Negative (Negative); Nitrite Negative (Negative); Protein, Urine (Dipstick) Negative (Neg-Trace); Urobilinogen 0.2 mg/dL (Less than 2)
[2022-10-11] MEDS ORDERED: Dextrose 5 % And 0.9 % NaCl 1,000 ML ONE (17:35)
== END 2022-10-11 22:46 | disposition home or self-care (01) ==
LOC: MADERS 08:28
DX: O98.511 Other viral diseases complicating pregnancy, first trimester (principal); J10.1 Influenza due to other identified influenza virus with other respiratory manifestations; O99.281 Endocrine, nutritional and metabolic diseases complicating pregnancy, first trimester; E86.0 Dehydration; E87.6 Hypokalemia; E83.42 Hypomagnesemia; E03.9 Hypothyroidism, unspecified; O99.891 Other specified diseases and conditions complicating pregnancy; R94.31 Abnormal electrocardiogram [ECG] [EKG]; O99.411 Diseases of the circulatory system complicating pregnancy, first trimester; I45.10 Unspecified right bundle-branch block; Z3A.10 10 weeks gestation of pregnancy
CPT/HCPCS: 36415; 71045; 80053; 81003; 82550; 83605; 83690; 83735; 84439; 84443; 84484; 85025; 87040; 87086; 87804; 93005; 94760; 96374; 96375; J1200; J2765; J3475; J7042; J7120

== ENCOUNTER 2023-01-16 17:16 | Emergency (ER) | payer OTHER ==
[2023-01-16] MEDS ORDERED: Acetaminophen 500 MG TAB ONE (17:47)
[2023-01-16 18:02] LABS: #Eosinphils 0.3 thou/uL (0.0-0.7); #Lymphocytes 1.4 thou/uL (1.20-3.40); #Monocytes 0.4 thou/uL (0.11-0.59); #Neutrophils 4.1 thou/uL (1.40-6.50); %Basophils 0.6 % (0.0-1.0); %Eosinophils 4.5 % (0.0-10.0); %Lymphocytes 22.8 % (21.0-51.0); %Neutrophils 66.1 % (42.0-75.0); Mean Corpuscular HGB CONC 35.8 g/dL (32.0-36.0); Mean Corpuscular Hemoglobin 31.2 pg (27.0-31.0); Mean Platelet Volume 6.5 fL (7.4-10.4); Platelet Count 208 10x3/uL (130-400); RBC Distribution Width 11.1 % (11.5-14.5); Red Blood Cell (RBC) Count 3.53 mill/uL (4.20-5.40); White Blood Cell (WBC) Count 6.2 10x3/uL (4.8-10.8)
[2023-01-16 18:06] LABS: Bilirubin Negative (Negative); Blood, Urine Negative (Negative); Glucose, Urine (Dipstick) Negative (Negative); Ketone, Urine 15 mg/dL (Negative); Leukocyte Small (Negative); Nitrite Negative (Negative); Protein, Urine (Dipstick) Trace mg/dL (Neg-Trace); Urobilinogen 0.2 mg/dL (Less than 2)
[2023-01-16 18:08] LABS: Clarity Cloudy (Clear)
[2023-01-16 18:16] LABS: ALT (SGPT) 9 U/L (8-55); AST (SGOT) 13 U/L (5-34); Albumin 3.8 g/dL (3.5-5.0); Alkaline Phosphatase 54 U/L (40-110); Anion Gap 12 mmol/L (10-20); BUN (Urea Nitrogen) 6 mg/dL (7.0-18.7); Bilirubin, Total 0.4 mg/dL (0.2-1.2); Calc. Creatinine Clearance 0 mL/min (70-130); Calcium 8.6 mg/dL (7.8-10.44); Carbon Dioxide 22 mmol/L (22-29); Chloride 109 mmol/L (98-107); Estimated GFR 127; Globulin 3.5 g/dL (2.4-3.5); Glucose 73 mg/dL (70-105); Potassium 3.6 mmol/L (3.5-5.1); Protein, Total 7.3 g/dL (6.0-8.3); Sodium 139 mmol/L (136-145)
[2023-01-16 18:18] LABS: Bacteria/HPF Rare-Few HPF (None Seen); RBC/HPF None Seen HPF (0-3)
[2023-01-16] MEDS ORDERED: Cephalexin 500 MG CAP ONE (18:26)
== END 2023-01-16 18:35 | disposition home or self-care (01) ==
LOC: MADERS 17:16
DX: O23.42 Unspecified infection of urinary tract in pregnancy, second trimester (principal); N39.0 Urinary tract infection, site not specified; Z3A.24 24 weeks gestation of pregnancy
CPT/HCPCS: 36415; 80053; 81003; 81015; 84702; 85025; 99284

== ENCOUNTER 2023-08-22 18:16 | Emergency (ER) | payer OTHER ==
[2023-08-22 19:48] LABS: Bilirubin Negative (Negative); Blood, Urine Negative (Negative); Glucose, Urine (Dipstick) Negative (Negative); Ketone, Urine Trace mg/dL (Negative); Leukocyte Negative (Negative); Nitrite Negative (Negative); Protein, Urine (Dipstick) Trace mg/dL (Neg-Trace); Urobilinogen 0.2 mg/dL (Less than 2)
[2023-08-22 19:53] LABS: Clarity Hazy (Clear)
[2023-08-22 19:54] LABS: Bacteria/HPF Rare-Few HPF (None Seen); CAUTI Indications for Culture Pelvic or flank pain; RBC/HPF 0-3 HPF (0-3)
[2023-08-22 19:55] LABS: Urine Culture Reflex No No
== END 2023-08-22 20:13 | disposition home or self-care (01) ==
LOC: MADERS 18:16
DX: J06.9 Acute upper respiratory infection, unspecified (principal); R30.0 Dysuria; E66.9 Obesity, unspecified
CPT/HCPCS: 81001; 99283

== ENCOUNTER 2023-09-01 07:34 | Emergency (ER) | payer OTHER ==
[2023-09-01] MEDS ORDERED: Albuterol 200 PUFF (6.7GM INHALER) ONE (07:58)
== END 2023-09-01 08:11 | disposition home or self-care (01) ==
LOC: MADERS 07:34
DX: J20.9 Acute bronchitis, unspecified (principal); J30.2 Other seasonal allergic rhinitis; I10 Essential (primary) hypertension
CPT/HCPCS: 71046

== ENCOUNTER 2024-05-11 12:28 | Emergency (ER) | payer OTHER ==
[2024-05-11] MEDS ORDERED: Ondansetron ODT 4 MG TAB ONE (12:45)
[2024-05-11 12:54] LABS: Bilirubin Small (Negative); Blood, Urine Negative (Negative); Clarity Clear (Clear); Glucose, Urine (Dipstick) Negative (Negative); Ketone, Urine Trace mg/dL (Negative); Leukocyte Small (Negative); Nitrite Negative (Negative); Protein, Urine (Dipstick) 30 mg/dL (Neg-Trace); Urobilinogen 0.2 mg/dL (Less than 2)
[2024-05-11 12:55] LABS: Pregnancy Test - Urine (BHCG) Negative (Negative); Specific Gravity 1.028 (1.002-1.036); Specific Gravity, Urine 1.028 (1.002-1.036)
[2024-05-11 12:56] LABS: Pregu Control Background? CLEAR/WHITE (CLR/WHITE); Pregu Control Bar Appear? YES (CONTROL BAR)
[2024-05-11 12:59] LABS: Bacteria/HPF Rare-Few HPF (None Seen); CAUTI Indications for Culture Dysuria,urgency,freq; RBC/HPF 0-3 HPF (0-3)
[2024-05-11 13:00] LABS: Urine Culture Reflex No No
== END 2024-05-11 13:03 | disposition home or self-care (01) ==
LOC: MADERS 12:28
DX: K52.9 Noninfective gastroenteritis and colitis, unspecified (principal); I10 Essential (primary) hypertension; Z76.0 Encounter for issue of repeat prescription
CPT/HCPCS: 81001; 81025; 87086; 99284; Q0162

== ENCOUNTER 2024-10-17 14:37 | Emergency (ER) | payer OTHER ==
[2024-10-17 15:08] LABS: Hemoglobin 9.7 g/dL (12.0-16.0); Mean Corpuscular HGB CONC 30.4 g/dL (32.0-36.0); Mean Corpuscular Hemoglobin 25.1 pg (27.0-31.0); Mean Corpuscular Volume 82.4 fl (78.0-98.0); Red Blood Cell (RBC) Count 3.88 mill/uL (4.20-5.40); White Blood Cell (WBC) Count 5.2 10x3/uL (4.8-10.8)
[2024-10-17 15:09] LABS: #Basophils 0.1 thou/uL (0.0-0.2); #Eosinophils 0.2 thou/uL (0.0-0.7); #Lymphocytes 1.7 thou/uL (1.20-3.40); #Monocytes 0.4 thou/uL (0.11-0.59); #Neutrophils 2.9 thou/uL (1.40-6.50); %Eosinophils 2.9 % (0.0-10.0); %Lymphocytes 33.5 % (21.0-51.0); %Monocytes 6.8 % (0.0-10.0); %Neutrophils 55.8 % (42.0-75.0); Mean Platelet Volume 7.3 fL (7.4-10.4); Platelet Count 289 10x3/uL (130-400)
[2024-10-17 15:13] LABS: BHCG - Serum Negative (NEGATIVE); Pregs Control Background? CLEAR/WHITE (CLR/WHITE); Pregs Control Bar Appear? YES (CONTROL BAR)
[2024-10-17 15:19] LABS: Bilirubin Negative (Negative); Blood, Urine Negative (Negative); Clarity Hazy (Clear); Glucose, Urine (Dipstick) Negative (Negative); Ketone, Urine Trace mg/dL (Negative); Leukocyte Trace (Negative); Nitrite Negative (Negative); Protein, Urine (Dipstick) 30 mg/dL (Neg-Trace); Specific Gravity, Urine 1.025 (1.005-1.030); pH, Urine 7.5 (5.0-9.0)
[2024-10-17 15:23] LABS: ALT (SGPT) 9 U/L (8-55); AST (SGOT) 12 U/L (5-34); Albumin 3.9 g/dL (3.5-5.0); Alkaline Phosphatase 51 U/L (40-110); Anion Gap 13 mmol/L (10-20); BUN (Urea Nitrogen) 8 mg/dL (7.0-18.7); Bilirubin, Total 0.8 mg/dL (0.2-1.2); Calc. Creatinine Clearance 0 mL/min (70-130); Calcium 9.3 mg/dL (7.8-10.44); Carbon Dioxide 22 mmol/L (22-29); Chloride 107 mmol/L (98-107); Estimated GFR 109; Globulin 3.7 g/dL (2.4-3.5); Glucose 99 mg/dL (70-105); Potassium 3.7 mmol/L (3.5-5.1); Protein, Total 7.6 g/dL (6.0-8.3); Sodium 138 mmol/L (136-145)
[2024-10-17 15:31] LABS: Bacteria/HPF Rare-Few HPF (None Seen); CAUTI Indications for Culture Dysuria,urgency,freq; RBC/HPF None Seen HPF (0-3)
[2024-10-17 15:32] LABS: Mucous/LPF 2+ LPF (<2+); Urine Culture Reflex No No
== END 2024-10-17 15:52 | disposition home or self-care (01) ==
LOC: MADERS 14:37
DX: R10.30 Lower abdominal pain, unspecified (principal); D64.9 Anemia, unspecified; R11.2 Nausea with vomiting, unspecified; I10 Essential (primary) hypertension
CPT/HCPCS: 36415; 80053; 81001; 84703; 85025; 99283

== ENCOUNTER 2025-07-14 17:07 | Emergency (ER) | payer OTHER, MEDICAID ==
[2025-07-14] MEDS ORDERED: Benzonatate 100 MG CAP ONE (17:41)
[2025-07-14] MEDS ORDERED: Ibuprofen 800 MG TAB ONE (17:42)
[2025-07-14 17:43] LABS: Glucose, Urine (Dipstick) Negative (Negative); Leukocyte Trace (Negative); Protein, Urine (Dipstick) 30 mg/dL (Neg-Trace); Specific Gravity, Urine 1.020 (1.005-1.030)
[2025-07-14 17:47] LABS: Pregnancy Test - Urine (BHCG) Negative (Negative); Pregu Control Background? CLEAR/WHITE (CLR/WHITE); Pregu Control Bar Appear? YES (CONTROL BAR)
[2025-07-14 17:50] LABS: Bacteria/HPF Rare-Few HPF (None Seen); CAUTI Indications for Culture Pelvic or flank pain; Mucous/LPF 4+ LPF (<2+); RBC/HPF None Seen HPF (0-3); Urine Culture Reflex No No
== END 2025-07-14 18:26 | disposition home or self-care (01) ==
LOC: MADERS 17:07
DX: J06.9 Acute upper respiratory infection, unspecified (principal); I10 Essential (primary) hypertension
CPT/HCPCS: 81001; 81025; 87081; 87430